=== PATIENT | male | born 1950 | race Caucasian/White ===

== ENCOUNTER → 2017-11-29 | Outpatient (CLI) | payer MEDICARE, OTHER ==
[~2017-11-29] MED LIST: ASPIRIN 32325 MG/TAB PO; COUMADIN 5MG5 MG/TAB PO; CRESTOR 10MG10 MG PO; GLUCOPHAGE1000 MG PO; LOVENOX 4040 MG/0.4 SQ; LOVENOX150 MG/ML SQ; MONOPRIL40 MG PO; NAPROSYN500 MG PO; NIASPAN 500MG500 MG PO; NORVASC 5MG5 MG/TAB PO; PERCOCET 325 MG1 TA2 PO; PRIL40 PO; TRILIPIX 135MG PO
== END ==
LOC: COL.RAD 11-02 15:34
DX: I26.99 Other pulmonary embolism without acute cor pulmonale (principal)
CPT/HCPCS: A9539; A9540; J7674

== ENCOUNTER 2018-04-27 10:06 | Outpatient (CLI) | payer MEDICARE, OTHER ==
[~2018-04-27] VITALS: Ht 177.8 cm; Wt 170.5 kg
[2018-04-27] VITALS (7 sets, daily range): BP systolic 116–160; BP diastolic 76–95; PULSE 81–91; TEMP 97.6
[2018-04-27 10:45] LABS: INR 1.1 (0.8-3.0); PROTHROMBIN TIME 12.5 SECONDS (9.7-12.8)
[2018-04-27] MEDS ORDERED: MONOPRIL20 MG PO (10:59)
[2018-04-27] MEDS ORDERED: COUMADIN 22.5 MG/TAB PO (11:01)
[2018-04-27] MEDS ORDERED: COUMADIN 5MG5 MG/TAB PO (11:02)
[2018-04-27] MEDS ORDERED: TRICOR145 MG PO (11:03)
[2018-04-27] MEDS ORDERED: JANUVIA50 MG PO (11:06)
[2018-04-27] MEDS ORDERED: ASTHMA INHALER IH (11:10)
[2018-04-27] MEDS ORDERED: RT ALBUTER2.5 MG/0.5 IH (11:11)
[2018-04-27] MEDS ORDERED: BIPAP (11:15)
--- NOTE | 2018-04-27 14:53 | NUR ---
ALL MEDS GIVEN VIA VERBAL WITH READBACK. SEE MERGE FOR ADMIN TIMES.
--- NOTE | 2018-04-27 15:00 | NUR ---
REPORT TAKEN FROM ЕЛЕНА MAGUIRE IN [employer]. NO COMPLICATIONS WITH IVC REMOVAL. VSS. DRESSING C/D/I.
--- NOTE | 2018-04-27 15:54 | NUR ---
SPOKE WITH DR. MARCELINO AND PT MAY EAT POST PROCEDURE.
--- NOTE | 2018-04-27 18:27 | NUR ---
Discharge instructions reviewed with pt/spouse. Pt/spouse voice understanding. Pt voiding with no complications. Pt tolerating intake with no N/V. This RN faxed PT/INR results to Alberto Resendiz in [place] at [facility]. Dressing was redressed with 4x4 gauze and tegaderm to allow for more comfortable movement. Pt was discharged via w/c to the care of spouse in private vehicle with discharge instructions in hand.
--- NOTE | 2018-04-27 18:41 | NUR ---
Tried to fax PT/INR results to Alberto Resendiz in [place] but no fax number available.
== END 2018-04-27 17:00 | disposition home or self-care (01) ==
LOC: COL.CAR 10:06
PROVIDERS: Internal Medicine Pulmonary Disease
DX: Z45.2 Encounter for adjustment and management of vascular access device (principal); Z86.711 Personal history of pulmonary embolism; Z86.718 Personal history of other venous thrombosis and embolism; Z88.3 Allergy status to other anti-infective agents; Z88.8 Allergy status to other drugs, medicaments and biological substances; E78.00 Pure hypercholesterolemia, unspecified; E11.9 Type 2 diabetes mellitus without complications; Z91.041 Radiographic dye allergy status; G47.33 Obstructive sleep apnea (adult) (pediatric); J45.909 Unspecified asthma, uncomplicated; I27.20 Pulmonary hypertension, unspecified; Z79.01 Long term (current) use of anticoagulants; Z79.84 Long term (current) use of oral hypoglycemic drugs
CPT/HCPCS: C1769; J1720; J2250; J3010; J7120; Q9967